=== PATIENT | female | born 1950 | race Caucasian/White ===

== ENCOUNTER 2017-03-13 17:54 | Emergency (ER) | payer MEDICARE ==
[2017-03-13] MEDS ORDERED: MORPHINE SULFATE 10 MG/ML INJ IV PRN (18:29)
--- NOTE | 2017-03-13 18:29 | ER Document Report ---
ED General - General Chief Complaint: Leg Pain Stated Complaint: RIGHT KNEE PAIN Time Seen by Provider: 03/13/17 18:16 Mode of Arrival: Ambulatory Information source: Patient Notes: This is a 66-year-old female with a history of hypercholesterolemia and hypertension that presents to the emergency room with progressively increased right lower extremity pain and swelling. Patient notes palpitations and shortness of breath today. Patient states she initially twisted her right knee 3 weeks ago in the garage, at that time she felt a pop in her right knee. She states that the pain got better of the next few days, but then notes progressive increased swelling since that time. TRAVEL OUTSIDE OF THE [place] IN LAST 30 DAYS: No - HPI Onset: Last week Onset/Duration: Gradual Quality of pain: Dull Severity: Moderate Pain Level: 2 Associated symptoms: Shortness of breath. denies: Chest pain Exacerbated by: Denies Relieved by: Denies Similar symptoms previously: No Recently seen / treated by doctor: No - Related Data Allergies/Adverse Reactions: No Known Allergies Allergy (Unverified 03/13/17 18:09) Home Medications: Current Home Medications Budesonide/Formoterol Fumarate [Symbicort Hfa 160-4.5 Mcg Inhaler 6 gm] 2 puff IH Q12 03/13/17 [History] Pravastatin Sodium [Pravachol] 40 mg PO QHS 03/13/17 [History] Valsartan/Hydrochlorothiazide [Valsartan-Hctz 160-12.5 mg Tab] 1 each PO DAILY 03/13/17 [History] Past Medical History - General Information source: Patient - Social History Smoking Status: Never Smoker Cigarette use (# per day): No Chew tobacco use (# tins/day): No Frequency of alcohol use: None Drug Abuse: None Lives with: Family Family History: Reviewed & Not Pertinent Patient has suicidal ideation: No Patient has homicidal ideation: No - Past Medical History Cardiac Medical History: Reports: Hx Hypercholesterolemia, Hx Hypertension Pulmonary Medical History: Reports: None EENT Medical History: Reports: None Neurological Medical History: Reports: None Renal/ Medical History: Denies: Hx Peritoneal Dialysis Malignancy Medical History: Reports: None GI Medical History: Reports: None Musculoskeltal Medical History: Reports None Skin Medical History: Reports None Psychiatric Medical History: Reports: None Traumatic Medical History: Reports: None Infectious Medical History: Reports: None Surgical Hx: Negative Review of Systems - Review of Systems Constitutional: denies: Chills, Fever EENT: No symptoms reported Cardiovascular: See HPI, Palpitations Respiratory: See HPI Gastrointestinal: No symptoms reported Genitourinary: No symptoms reported Female Genitourinary: No symptoms reported Musculoskeletal: No symptoms reported Skin: No symptoms reported Hematologic/Lymphatic: No symptoms reported Neurological/Psychological: No symptoms reported Physical Exam - Vital signs Vitals: Temp Pulse Resp BP Pulse Ox 98.4 F 109 H 20 153/83 H 94 03/13/17 18:07 03/13/17 18:07 03/13/17 18:07 03/13/17 18:07 03/13/17 18:07 Notes: Physical exam: GENERAL: XT 6-year-old female, alert and oriented 3, no acute distress, complaining of right lower extremity pain. HEAD: Atraumatic, normocephalic. EYES: Pupils equal round and reactive to light, extraocular movements intact, sclera anicteric, conjunctiva are normal. ENT: TMs normal, nares patent, oropharynx clear without exudates. Moist mucous membranes. NECK: Normal range of motion, supple without obvious mass or JVD. LUNGS: Breath sounds clear to auscultation bilaterally and equal. No wheezes rales or rhonchi. HEART: Regular rate and rhythm without murmurs, rubs or gallops. ABDOMEN: Soft, normoactive bowel sounds. No tenderness to palpation. No guarding, no rebound. No masses appreciated. EXTREMITIES: Patient does have swelling in the right lower extremity. She does have calf tenderness. She does have superficial venous disease of the right lower extremity. She has a good dorsal pedal pulse which is strong. Her cap refill is good. Her foot is normal in color and warmth. NEUROLOGICAL: Cranial nerves II through XII grossly intact. Normal speech, moving all extremities. PSYCH: Normal mood, normal affect. SKIN: Warm, Dry, normal turgor, no rashes or lesions noted. Course - Re-evaluation Re-evalutation: 03/13/17 23:13 Note: Mrs. Marie is a pleasant woman that is under a lot of stress lately. Her is terminally ill and she has a special needs 26-year-old son. She presented with palpitations and right lower extremity pain and swelling. The CTA of the chest showed no evidence of pulmonary emboli. Her cardiac enzymes were normal. Her EKG shows a left bundle branch block but there is no old EKG to compare. She has not had any chest pain. I did offer her admission because of the palpitations but she states that she has to be home to take care of her family. She is accompanied by her neighbor who lives across the street and is very supportive. The lower extremity ultrasound showed a complex right Rivera's cyst but they were not able to exclude a neoplastic component. I have discussed this with both of them. She will require an outpatient MRI. I again offered her admission for the palpitations and monitoring, and informed her that the MRI could be performed in the morning (MRI is not available at this time). She again reiterated that she has to go. I will give her a copy of today's lab tests and a referral to a primary care doctor. She understands that she needs the MRI. - Vital Signs Vital signs: Temp Pulse Resp BP Pulse Ox 98.5 F 87 20 143/61 H 93 03/13/17 23:54 03/13/17 23:54 03/13/17 18:07 03/13/17 23:54 03/13/17 23:54 - Laboratory Result Diagrams: 03/13/17 18:48 03/13/17 18:48 Laboratory results interpreted by me: 03/13/17 18:48 BUN 22 H - Diagnostic Test Radiology reviewed: Image reviewed, Reports reviewed - CTA of the chest shows no pulmonary emboli - EKG Interpretation by Me Rate: Normal Rhythm: NSR - EKG shows normal sinus rhythm with a left bundle branch block (no old EKG to compare). Discharge - Discharge Clinical Impression: Right leg swelling, Palpitations Condition: Stable Disposition: HOME, SELF-CARE Additional Instructions: As we discussed, the CT of the chest showed no evidence of blood clots. Your labs look very good. The ultrasound of the lower legs showed a complex cyst behind the knee. They are unable to exclude any neoplastic component. They recommended a contrast MRI of the right knee. I would like you to follow-up with your primary care doctor (either cony you or Dr. Florian) or Dr. Hightower (I will give you his number). Bring a copy of today's labs and ultrasound report with you when you see the doctor. In the meantime, take pain medicine as prescribed. See the instruction sheet below for narcotics. Return to the emergency room for worsening pain or swelling of the right lower leg. Return to the ER for any chest pain or shortness of breath. The pain medicine you're taking prescribed as a narcotic. There are several important things you should know about this medicine: 1. This medicine contains Tylenol: It is important that you do not take Tylenol (or acetaminophen) while on this medicine. Tylenol is metabolized by the liver and taking too much Tylenol (acetaminophen) can lay to liver damage and even liver failure. 2. Taking narcotics for too long can lead to physical and mental dependence. Take this medicine only if really needed and in the lowest quantity to achieve pain relief. 3. Do not drink alcohol while on this medicine. Alcohol interacts with narcotics and the combination can be dangerous. 4. Do not drive or operate machinery while on this medicine. 5. Narcotics do cause constipation, so drink plenty of fluids and daily stool softeners. Prescriptions: Oxycodone HCl/Acetaminophen [Percocet 5-325 mg Tablet] 1 - 2 tab PO ASDIR PRN # 25 tablet PRN Reason: Referrals: BARRETT SCHULTE FNP-C [Primary Care Provider] - Follow up as needed ADDI HIGHTOWER MD [ACTIVE STAFF] - Follow up as needed (This is the number of a primary care doctor)
[2017-03-13] MEDS ORDERED: ONDANSETRON HCL INJ/PF 4 MG/2 ML SDV IV ONE (18:30)
[2017-03-13 18:56] LABS: ABSOLUTE EOSINOPHILS # (AUTO) 0.1 10^3/uL (0.0-0.6); ABSOLUTE MONOCYTES (AUTO) 0.4 10^3/uL (0.1-1.4); ABSOLUTE NEUT (AUTO) 4.3 10^3/uL (1.7-8.2); BASOPHILS % (AUTO) 0.6 % (0-2); EOSINOPHILS % (AUTO) 1.4 % (0-6); HEMATOCRIT 40.9 % (36.0-47.0); HEMOGLOBIN 13.5 g/dL (12.0-15.5); LYMPHOCYTES % (AUTO) 17.5 % (13-45); MEAN CORPUSCULAR HEMOGLOBIN 31.4 pg (27.0-33.4); MEAN CORPUSCULAR HGB CONC 33.1 g/dL (32.0-36.0); MEAN CORPUSCULAR VOLUME 95 fl (80-97); MONOCYTES % (AUTO) 7.4 % (3-13); PLATELET COUNT 208 10^3/uL (150-450); RED CELL DISTRIBUTION WIDTH 12.3 % (11.5-14.0); SEGMENTED NEUTROPHILS % (AUTO) 73.1 % (42-78); TOTAL CELLS COUNTED % (AUTO) 100 %; WHITE BLOOD COUNT 5.9 10^3/uL (4.0-10.5)
[2017-03-13 19:10] LABS: ALANINE AMINOTRANSFERASE 20 U/L (9-52); ALBUMIN 3.9 g/dL (3.5-5.0); ALKALINE PHOSPHATASE 77 U/L (38-126); ANION GAP 9 (5-19); ASPARTATE AMINO TRANSFERASE 23 U/L (14-36); BILIRUBIN,DIRECT 0.3 mg/dL (0.0-0.4); BILIRUBIN,TOTAL 0.5 mg/dL (0.2-1.3); BLOOD UREA NITROGEN 22 mg/dL (7-20); CALCIUM 9.8 mg/dL (8.4-10.2); CARBON DIOXIDE 30 mmol/L (22-30); CHLORIDE 103 mmol/L (98-107); CREATINE KINASE 65 U/L (30-135); GLUCOSE 102 mg/dL (75-110); SODIUM 141.6 mmol/L (137-145); TOTAL PROTEIN 6.6 g/dL (6.3-8.2)
--- NOTE | 2017-03-13 19:13 | RADIOLOGY REPORT (SQ) ---
EXAM DESCRIPTION: KNEE RIGHT 3 VIEWS COMPLETED DATE/TIME: 03/13/2017 7:05 pm REASON FOR STUDY: right knee pain COMPARISON: None. NUMBER OF VIEWS: Three views. TECHNIQUE: AP, lateral, and sunrise patella radiographic images acquired of the right knee. LIMITATIONS: None. FINDINGS: MINERALIZATION: Normal. BONES: No acute fracture or dislocation. No worrisome bone lesions. No significant osteophytes. JOINT: No effusion. No chondrocalcinosis. OTHER: No other significant finding. IMPRESSION: NEGATIVE STUDY OF RIGHT KNEE. NO RADIOGRAPHIC EVIDENCE OF ACUTE INJURY. NO EXPLANATION F OR PAIN. TECHNICAL DOCUMENTATION: JOB ID: [id number] [employer]- All Rights Reserved
[2017-03-13 19:22] LABS: CREATINE KINASE MB 1.4 ng/mL (<4.55); TROPONIN I 0.019 ng/mL
--- NOTE | 2017-03-13 21:14 | RADIOLOGY REPORT (SQ) ---
EXAM DESCRIPTION: CTA CHEST COMPLETED DATE/TIME: 03/13/2017 9:00 pm REASON FOR STUDY: sob COMPARISON: None. TECHNIQUE: CT scan of the chest performed using helical scanning technique with dynamic intravenous contrast injection. Images reviewed with lung, soft tissue and bone windows. Reconstructed coronal and sagittal MPR images reviewed. Additional 3 dimensional post-processing performed to develop Maximal Intensity Projection images (PA P). All images stored on PACS. All CT scanners at this facility use dose modulation, iterative reconstruction, and/or weight based d osing when appropriate to reduce radiation dose to as low as reasonably achievable (ALARA). [facility]: Dose Right [facility]: CareDose [facility]: Dose Right [facility]: Teradose 4D [facility]: xiao qu wu you CONTRAST TYPE AND DOSE: contrast/concentration: Isovue 370.00 mg/ml; Total Contrast Delivered: 80.0 ml; Total Saline Delivered: 70.0 ml Contrast bolus adequate for pulmonary arteries and aorta. RENAL FUNCTION: BUN 22 creatinine 0.61. RADIATION DOSE: CT Rad equipment meets quality standard of care and radiation dose reduction techniq ues were employed. CTDIvol: 5.0 - 21.8 mGy. DLP: 855 mGy-cm. . LIMITATIONS: None. FINDINGS: LUNGS AND PLEURA: No masses, infiltrates, pneumothorax. Mild basilar scarring. No pleura l effusions, calcifications. AORTA AND GREAT VESSELS: No aneurysm. 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 HEART: No pericardial effusion. No significant coronary artery calcifications. PULMONARY ARTERIES: No emboli visualized in the main pulmonary arteries or the segmental branches. HILAR AND MEDIASTINAL STRUCTURES: No identified masses or abnormal nodes. HARDWARE: None in the chest. UPPER ABDOMEN: No significant findings. Limited exam. THYROID AND OTHER SOFT TISSUES: No masses. No adenopathy. BONES: No acute or significant finding. 3D MIPS: Confirm above findings. OTHER: No other significant finding. IMPRESSION: NORMAL CTA OF THE CHEST. NO PULMONARY EMBOLI. COMMENT: Quality ID # [id number]: Final reports with documentation of one or more dose reduction techniques (e.g., Automated exposure control, adjustment of the mA and/or kV according to patient size, use of iterative reconstruction technique) TECHNICAL DOCUMENTATION: JOB ID: [id number] [employer]- All Rights Reserved
--- NOTE | 2017-03-13 22:53 | RADIOLOGY REPORT (SQ) ---
EXAM DESCRIPTION: VENOUS UNILATERAL LOWER CLINICAL HISTORY: 66 years, Female, RLE pain and swelling COMPARISON: None. TECHNIQUE: Doppler venous sonogram. LIMITATIONS: None. FINDINGS: Deep venous system of the right lower extremity appears unremarkable based on color Doppler flow, compressibility, and augmentation maneuvers. Contralateral left common femoral vein is unremarkable. There is a 4.3 x 3.1 x 1.8 cm hypoechoic heterogeneous Rivera's cyst shaped no significant vascularity. IMPRESSION: 1. Possible 4.3 cm hemorrhagic/complex right Rivera's cyst; cannot exclude neoplastic component. Recommend contrast MRI of the right knee. 2.No DVT of the right lower extremity. 2011 [employer]- All Rights Reserved
[2017-03-13] MEDS ORDERED: OXYCODONE-ACETAMINOPHEN 5-325 MG TABLET PO ONE (23:19)
[2017-03-13 23:55] VITALS: BP 143/61
--- NOTE | 2017-03-14 09:19 | EKG REPORT ---
SEVERITY:- ABNORMAL ECG - SINUS RHYTHM LEFT BUNDLE BRANCH BLOCK : Confirmed by: Neeta Goel 14-Mar-2017 09:18:29
== END 2017-03-14 00:12 | disposition home or self-care (01) ==
LOC: ER 17:54
DX: M71.21 Synovial cyst of popliteal space [Baker], right knee (principal); I87.2 Venous insufficiency (chronic) (peripheral); M79.89 Other specified soft tissue disorders; M25.561 Pain in right knee; I10 Essential (primary) hypertension; R00.2 Palpitations; R06.02 Shortness of breath; I44.7 Left bundle-branch block, unspecified
CPT/HCPCS: 93005; 99285; 96374; 96375; 36415; 82553; 82550; 85025; 80053; 84484; 93971; 73562; 71275; 93010; J2270; A9270; J2405

== ENCOUNTER 2019-02-20 22:23 | Emergency (ER) | payer MEDICARE ==
[2019-02-20 23:07] LABS: ABSOLUTE EOSINOPHILS # (AUTO) 0.2 10^3/uL (0.0-0.6); ABSOLUTE LYMPHOCYTES (AUTO) 1.1 10^3/uL (0.5-4.7); ABSOLUTE MONOCYTES (AUTO) 0.5 10^3/uL (0.1-1.4); ABSOLUTE NEUT (AUTO) 4.5 10^3/uL (1.7-8.2); BASOPHILS % (AUTO) 0.5 % (0-2); EOSINOPHILS % (AUTO) 3.3 % (0-6); HEMATOCRIT 44.2 % (36.0-47.0); HEMOGLOBIN 14.8 g/dL (12.0-15.5); LYMPHOCYTES % (AUTO) 17.9 % (13-45); MEAN CORPUSCULAR HEMOGLOBIN 31.3 pg (27.0-33.4); MEAN CORPUSCULAR HGB CONC 33.5 g/dL (32.0-36.0); MEAN CORPUSCULAR VOLUME 93 fl (80-97); MONOCYTES % (AUTO) 8.3 % (3-13); PLATELET COUNT 200 10^3/uL (150-450); RED BLOOD COUNT 4.74 10^6/uL (3.72-5.28); RED CELL DISTRIBUTION WIDTH 12.5 % (11.5-14.0); TOTAL CELLS COUNTED % (AUTO) 100 %; WHITE BLOOD COUNT 6.4 10^3/uL (4.0-10.5)
[2019-02-20 23:08] LABS: INTERNATIONAL RATION (INR) 0.96; PROTHROMBIN TIME 12.8 SEC (11.4-15.4)
[2019-02-20 23:13] LABS: ALKALINE PHOSPHATASE 73 U/L (38-126); ANION GAP 12 (5-19); ASPARTATE AMINO TRANSFERASE 18 U/L (14-36); BILIRUBIN,DIRECT 0.1 mg/dL (0.0-0.4); BILIRUBIN,TOTAL 0.3 mg/dL (0.2-1.3); BLOOD UREA NITROGEN 22 mg/dL (7-20); CALCIUM 10.4 mg/dL (8.4-10.2); CARBON DIOXIDE 27 mmol/L (22-30); CHLORIDE 102 mmol/L (98-107); CREATINE KINASE 71 U/L (30-135); GLUCOSE 178 mg/dL (75-110); POTASSIUM 3.6 mmol/L (3.6-5.0); TOTAL PROTEIN 6.9 g/dL (6.3-8.2)
[2019-02-20 23:25] LABS: CREATINE KINASE MB 2.16 ng/mL (<4.55)
[2019-02-20 23:31] LABS: TROPONIN I < 0.012 ng/mL
--- NOTE | 2019-02-21 00:06 | EKG REPORT ---
SEVERITY:- ABNORMAL ECG - SINUS TACHYCARDIA LEFT BUNDLE BRANCH BLOCK : Confirmed by: Josiah Gibbs MD 21-Feb-2019 00:05:08
--- NOTE | 2019-02-21 00:08 | RADIOLOGY REPORT (SQ) ---
EXAM DESCRIPTION: XR CHEST 2 VIEWS COMPLETED DATE/TME: 02/20/2019 00:00 CLINICAL HISTORY: SOB COMPARISON: 03/13/2017 FINDINGS: Frontal and lateral views of the chest. Cardiomediastinal silhouette: Atherosclerotic calcification of thoracic aorta. Heart is upper limits of normal. Lungs: No consolidation, pneumothorax, pleural effusion. Leads overlie the chest. Bones: Degenerative change of the spine. Upper abdomen: No abnormality identified. IMPRESSION: 1. No acute pulmonary process identified.
--- NOTE | 2019-02-21 02:01 | ER Document Report ---
ED General - General Chief Complaint: Shortness Of Breath Stated Complaint: SHORTNESS OF BREATH Time Seen by Provider: 02/21/19 01:41 Primary Care Provider: MAYNOR MARCANO PA-C [Primary Care Provider] - Follow up in 1 week Notes: 68-year-old female with past medical history of hypertension and left bundle branch block presents with palpitations that started last night. Patient states these are intermittent and feel like her heart is racing. Patient denies any chest pain/tightness, shortness of breath, fever, coughing, nausea/vomiting, abdominal pain. Patient states she has been under a lot of stress lately. Patient states it has been more constant today but still intermittent. Patient states the highest her heart rate was 120. Patient denies any long distance travel, recent hospitalizations/surgeries, history of cancer, estrogen use, history of DVT or PE. TRAVEL OUTSIDE OF THE [place] IN LAST 30 DAYS: No - Related Data Allergies/Adverse Reactions: No Known Allergies Allergy (Unverified 03/13/17 18:09) Past Medical History - Social History Smoking Status: Never Smoker Family History: Reviewed & Not Pertinent Patient has suicidal ideation: No Patient has homicidal ideation: No - Past Medical History Cardiac Medical History: Reports: Hx Hypercholesterolemia, Hx Hypertension Renal/ Medical History: Denies: Hx Peritoneal Dialysis Past Surgical History: Reports: Hx Section Review of Systems - Review of Systems Notes: Constitutional: Negative for fever. HENT: Negative for sore throat. Eyes: Negative for visual changes. Cardiovascular: Positive for palpitations. Negative for chest pain. Respiratory: Negative for shortness of breath. Gastrointestinal: Negative for abdominal pain, vomiting or diarrhea. Genitourinary: Negative for dysuria. Musculoskeletal: Negative for back pain. Skin: Negative for rash. Neurological: Negative for headaches, weakness or numbness. 10 point ROS negative except as marked above and in HPI. Physical Exam - Vital signs Vitals: Resp Pulse Ox 19 97 02/20/19 22:36 02/20/19 22:36 - Notes Notes: GENERAL: Well-appearing, well-nourished and in no acute distress. HEAD: Atraumatic, normocephalic. EYES: Extraocular movements intact, sclera anicteric, conjunctiva are normal. NECK: Normal range of motion, supple without lymphadenopathy or JVD. LUNGS: Breath sounds clear to auscultation bilaterally and equal. No wheezes rales or rhonchi. HEART: Regular rate and rhythm without murmurs, rubs or gallops. ABDOMEN: Soft, nontender. No guarding, no rebound. No masses appreciated. EXTREMITIES: Normal range of motion, no pitting or edema. No clubbing or cya nosis. NEUROLOGICAL: Cranial nerves II through XII grossly intact. Normal speech, normal gait. PSYCH: Normal mood, normal affect. SKIN: Warm, Dry, normal turgor, no rashes or lesions noted. Course - Re-evaluation Re-evalutation: 02/21/19 68-year-old female with history of hypertension and left bundle branch block presents for palpitations. Patient is nontoxic, well-appearing. Patient is non-tachycardic upon exam. Lungs are clear bilaterally. Abdomen soft nontender. PE is otherwise on remarkable. Cardiac work-up was initiated upon arrival. Lab work so far is reassuring. Troponin is negative. D-dimer, repeat troponin, and TSH were added on. 02/21/19 02:00 EKG shows sinus tachy at 109 with LBBB. 02/21/19 05:55 patient's d-dimer was elevated. Repeat Trope was negative. TSH was within normal limits. CT angio chest was ordered which showed no PE. Report was printed out and given to patient. Discussed all results including CTA chest with patient. Strict return precautions given. Patient is no longer tachycardic. Patient encouraged to keep appointment with PCP next week for further evaluation. All questions/concerns addressed prior to discharge. - Vital Signs Vital signs: Temp Pulse Resp BP Pulse Ox 98.2 F 112 H 16 173/98 H 100 02/20/19 22:50 02/20/19 22:50 02/21/19 05:00 02/20/19 22:50 02/21/19 05:00 - Laboratory Result Diagrams: 02/20/19 22:45 02/20/19 22:45 Laboratory results interpreted by me: 02/20/19 02/20/19 22:45 22:45 D-Dimer 0.65 H BUN 22 H Glucose 178 H Calcium 10.4 H Discharge - Discharge Clinical Impression: Palpitation Condition: Stable Disposition: HOME, SELF-CARE Instructions: Palpitations (Irregular or Rapid Heartrate) ([facility]) Additional Instructions: Your work-up today was reassuring. Please follow-up with your primary care doctor as scheduled next week. Return to ER for any worsening symptoms, including worsening palpitations, chest pain, shortness of breath, fever, cough, abdominal pain, nausea/vomiting, or any other symptoms that are concerning to you. Referrals: MAYNOR MARCANO PA-C [Primary Care Provider] - Follow up in 1 week
--- NOTE | 2019-02-21 05:28 | RADIOLOGY REPORT (SQ) ---
EXAM DESCRIPTION: CT CHEST ANGIOGRAPHY WITHOUT THEN WITH IV CONTRAST COMPLETED DATE/TME: 02/21/2019 02:32 EXAM DESCRIPTION: CLINICAL HISTORY: elevated d dimer, tachycardia, dyspnea COMPARISON: None Available. TECHNIQUE: CTA of the chest obtained following the uncomplicated intravenous administration of 77 mL Omnipaque 350. 3-D/MIP reformatted images of the chest available for evaluation. FINDINGS: Chest: Pulmonary arteries: Contrast bolus is adequate.No filling defects identified in the pulmonary arteries to suggest pulmonary embolus. Thyroid:No abnormalities of the visualized thyroid. Great Vessels: Aberrant right subclavian artery which is a normal variant. Thoracic Aorta:No abnormalities of the thoracic aorta identified. Heart: Cardiomegaly. Coronary artery atherosclerosis. No significant pericardial effusion. Lymph Nodes:No enlarged mediastinal lymph nodes identified. Esophagus: Small hiatal hernia. Other:No additional findings. Lungs:No airspace opacities identified. Pleura:No pleural effusion or pneumothorax. Trachea/Airways:No abnormalities of the visualized trachea or airways. Bones:No destructive osseous lesions. Upper Abdomen: Degenerative change of the spine. IMPRESSION: 1. No pulmonary embolus identified. 2. Cardiomegaly. Coronary artery atherosclerosis. This exam was performed according to our departmental dose-optimization program, which includes automated exposure control, adjustment of the mA and/or kV according to patient size and/or use of iterative reconstruction technique.
[2019-02-21 06:02] VITALS: BP 165/76
== END 2019-02-21 06:02 | disposition home or self-care (01) ==
LOC: ER 22:23
DX: R00.2 Palpitations (principal); I44.7 Left bundle-branch block, unspecified; I10 Essential (primary) hypertension; R79.89 Other specified abnormal findings of blood chemistry
CPT/HCPCS: 36415; 71046; 71275; 80053; 82550; 82553; 84443; 84484; 85025; 85379; 85610; 93005; 93010; 99285

== ENCOUNTER → 2019-07-26 | Outpatient (CLI) | payer MEDICARE ==
[2019-07-26 17:04] LABS: ALBUMIN 3.4 g/dL (3.5-5.0); ALKALINE PHOSPHATASE 574 U/L (38-126); ANION GAP 14 (5-19); ASPARTATE AMINO TRANSFERASE 83 U/L (14-36); BLOOD UREA NITROGEN 50 mg/dL (7-20); CARBON DIOXIDE 19 mmol/L (22-30); CHLORIDE 98 mmol/L (98-107); GLUCOSE 140 mg/dL (75-110); TOTAL PROTEIN 7.2 g/dL (6.3-8.2)
[2019-07-26 17:33] LABS: BILIRUBIN,TOTAL 36.3 mg/dL (0.2-1.3)
[2019-07-26 17:57] LABS: POTASSIUM 2.8 mmol/L (3.6-5.0)
--- NOTE | 2019-07-26 18:58 | RADIOLOGY REPORT (SQ) ---
EXAM DESCRIPTION: CT ABD/PELVIS WITH IV ORAL IMAGES COMPLETED DATE/TIME: 07/26/2019 6:27 pm REASON FOR STUDY: R16.0 HEPATOMEGALY, NOT ELSEWHERE CLASSIFIED R16.0 HEPATOMEGALY, NOT ELSEWHERE CL ASSIFIED COMPARISON: 03/07/2010 TECHNIQUE: CT scan of the abdomen and pelvis performed using helical scanning technique with dynamic intravenous contrast injection. No oral contrast. Images reviewed with lung, soft tissue, and bone windows. Reconstructed coronal and sagittal MPR images reviewed. Delayed images for evaluation of the urinary system also acquired. All images stored on PACS. All CT scanners at this facility use dose modulation, iterative reconstruction, and/or weight based d osing when appropriate to reduce radiation dose to as low as reasonably achievable (ALARA). [facility]: Dose Right [facility]: CareDose [facility]: Dose Right [facility]: Teradose 4D [facility]: Mabaya CONTRAST TYPE AND DOSE: 60 mL Omnipaque 300(the contrast was hand injected) RENAL FUNCTION: Creatinine - 1.53 BUN =50 RADIATION DOSE: CT Rad equipment meets quality standard of care and radiation dose reduction techniq ues were employed. CTDIvol: 16.2 - 19.0 mGy. DLP: 1780 mGy-cm.. LIMITATIONS: None. FINDINGS: LOWER CHEST: Very small subcentimeter left perifissural nodule, axial image 1, series 4. Prior granulomatous disease. LIVER: Marked intrahepatic biliary ductal dilatation and extrahepatic dilatation. The common bile d uct is dilated and measures approximately 18-19.0 mm in AP diameter. It is dilated throughout its co urse and appears to change caliber at about the level of the pancreatic head. Marked dilatation of t he pancreatic duct which measures approximately 2.1 cm in AP diameter. In the region of the head of the pancreas -neck of the pancreas, heterogenous appearing mass is suggested. Considerations for thi s finding includes pancreatic neoplasm. Moderate volume abdomen and pelvic ascites. Small calcified hepatic granuloma. Pelvic SPLEEN: Normal size. No focal lesions. PANCREAS: Please see above discussion. GALLBLADDER: Marked dilatation of the the gallbladder. No identified stones by CT criteria. No infl ammatory changes to suggest cholecystitis. ADRENAL GLANDS: No significant masses or asymmetry. RIGHT KIDNEY AND URETER: No solid masses. No significant calcifications. No hydronephrosis or hyd roureter. LEFT KIDNEY AND URETER: No solid masses. No significant calcifications. No hydronephrosis or hydr oureter. AORTA AND VESSELS: No aneurysm. No dissection. Renal arteries, SMA, celiac without stenosis. RETROPERITONEUM: No retroperitoneal adenopathy, hemorrhage or masses. BOWEL AND PERITONEAL CAVITY: Colonic diverticulosis. As can best be determined, no evidence of dive rticulitis. APPENDIX: Normal. PELVIS: The urinary bladder is incompletely distended. ABDOMINAL WALL: Bilateral fat containing inguinal hernias. BONES: Levoconvex scoliosis and degenerative lumbar spondylosis, facet arthrosis and disc disease. OTHER: Small to mild hiatal hernia. Partial fatty atrophy left gluteus yung muscle. IMPRESSION: 1. The constellation of findings as described above including marked intrahepatic and e xtrahepatic biliary ductal dilatation likely related to a pancreatic mass in the region of the head-n jon of the pancreas. Marked ductal dilatation of the pancreatic duct distal to the mass. Correlatio n with MRI Abdomen/MRCP. 2. Moderate abdominal and pelvic ascites. 3. Marked dilatation of the gallbladder. 4. Colonic diverticulosis. As can best be determined no evidence diverticulitis. Evaluation of the colon is somewhat limited. 5. Additional findings as above. TECHNICAL DOCUMENTATION: JOB ID: [id number] Quality ID # [id number]: Final reports with documentation of one or more dose reduction techniques (e.g., Au tomated exposure control, adjustment of the mA and/or kV according to patient size, use of iterative reconstruction technique) 2010 [employer]- All Rights Reserved Reading location - IP/workstation name: [email or web address]
== END ==
LOC: RAD 16:09
PROVIDERS: ATTEND Internal Medicine Geriatric Medicine
DX: R16.0 Hepatomegaly, not elsewhere classified (principal); R17 Unspecified jaundice; K44.9 Diaphragmatic hernia without obstruction or gangrene; K40.20 Bilateral inguinal hernia, without obstruction or gangrene, not specified as recurrent; R18.8 Other ascites; K82.8 Other specified diseases of gallbladder; K57.30 Diverticulosis of large intestine without perforation or abscess without bleeding; K86.89 Other specified diseases of pancreas
CPT/HCPCS: 36415; 74177; 80053

== ENCOUNTER 2019-07-27 15:04 | Inpatient (IN) | payer MEDICARE ==
--- NOTE | 2019-07-27 15:34 | ER Document Report ---
HPI - HPI Time Seen by Provider: 07/27/19 15:20 Pain Level: Denies Notes: 69-year-old female patient presents the emergency department as a direct admit from Dr. Avalos. She has admitting orders for severe jaundice with.'s, pancreatic mass, ascites and history of hypertension, COPD and hyperlipidemia. Patient reports over the last 2 weeks she is slowly been getting jaundiced. She reports she is normally healthy, exercises and follows a healthy diet. She has no acute complaints today that have not been met by Dr. Orellana orders. - REPRODUCTIVE Reproductive: DENIES: : Past Medical History - General Information source: Patient - Social History Smoking Status: Unknown if Ever Smoked Frequency of alcohol use: None Drug Abuse: None Family History: Reviewed & Not Pertinent Patient has homicidal ideation: No - Past Medical History Cardiac Medical History: Reports: Hx Hypercholesterolemia, Hx Hypertension Renal/ Medical History: Denies: Hx Peritoneal Dialysis Past Surgical History: Reports: Hx Section Vertical Provider Document - CONSTITUTIONAL Notes: PHYSICAL EXAMINATION: GENERAL: Appears to be stated age, well-nourished and in no acute distress. HEAD: Atraumatic, normocephalic. EYES: Pupils equal round extraocular movements intact, conjunctiva are yellow. ENT: Nares patent NECK: Normal range of motion LUNGS: No respiratory distress Musculoskeletal: Abdomen distended. NEUROLOGICAL: Normal speech, normal gait. PSYCH: Normal mood, normal affect. SKIN: Jaundiced. - INFECTION CONTROL TRAVEL OUTSIDE OF THE [place] IN LAST 30 DAYS: No Course - Re-evaluation Re-evalutation: 07/27/19 15:36 Patient presents as a direct admission, orders to be placed by medical secretary receptionist. Patient will be admitted to the [facility]. - Vital Signs Vital signs: Temp Pulse Resp BP Pulse Ox 97.4 F 81 18 121/52 L 96 07/27/19 15:21 07/27/19 15:07 07/27/19 15:07 07/27/19 15:07 07/27/19 15:07 Discharge - Discharge Clinical Impression: severe jaundice with puritis, Pancreatic mass, History of hypertension, COPD e xacerbation Ascites Qualifiers: Ascites type: other type Qualified Code(s): R18.8 - Other ascites HLD (hyperlipidemia) Qualifiers: Hyperlipidemia type: unspecified Qualified Code(s): E78.5 - Hyperlipidemia, unspecified Condition: Stable Disposition: ADMITTED INPATIENT Admitting Provider: [facility] Unit Admitted: IMCU Referrals: MAYNOR MARCANO PA-C [Primary Care Provider] - Follow up as needed
--- NOTE | 2019-07-27 16:53 | RADIOLOGY REPORT (SQ) ---
EXAM DESCRIPTION: CHEST 2 VIEWS IMAGES COMPLETED DATE/TIME: 07/27/2019 4:36 pm REASON FOR STUDY: copd, htn,ascitis COMPARISON: 02/20/2019 EXAM PARAMETERS: NUMBER OF VIEWS: two views TECHNIQUE: Digital Frontal and Lateral radiographic views of the chest acquired. RADIATION DOSE: NA LIMITATIONS: none FINDINGS: LUNGS AND PLEURA: Chronic interstitial changes without focal consolidation, pleural effusi on or pneumothorax. MEDIASTINUM AND HILAR STRUCTURES: No masses or contour abnormalities. HEART AND VASCULAR STRUCTURES: Heart normal size. No evidence for failure. BONES: No acute findings. Serpiginous thoracolumbar curvature. HARDWARE: None in the chest. OTHER: No other significant finding. IMPRESSION: No evidence of acute cardiopulmonary process. TECHNICAL DOCUMENTATION: JOB ID: [id number] 2010 [employer] All Rights Reserved Reading location - IP/workstation name: [email or web address]
[2019-07-27 18:49] LABS: HEMATOCRIT 37.2 % (36.0-47.0); HEMOGLOBIN 13.4 g/dL (12.0-15.5); MEAN CORPUSCULAR HEMOGLOBIN 31.6 pg (27.0-33.4); MEAN CORPUSCULAR HGB CONC 35.9 g/dL (32.0-36.0); MEAN CORPUSCULAR VOLUME 88 fl (80-97); RED BLOOD COUNT 4.23 10^6/uL (3.72-5.28); RED CELL DISTRIBUTION WIDTH 18.6 % (11.5-14.0); WHITE BLOOD COUNT 5.9 10^3/uL (4.0-10.5)
[2019-07-27 19:10] LABS: PLATELET COUNT 260 10^3/uL (150-450)
[2019-07-27 19:22] LABS: ALBUMIN 3.8 g/dL (3.5-5.0); ALKALINE PHOSPHATASE 668 U/L (38-126); ANION GAP 15 (5-19); ASPARTATE AMINO TRANSFERASE 101 U/L (14-36); BLOOD UREA NITROGEN 45 mg/dL (7-20); CALCIUM 10.4 mg/dL (8.4-10.2); CARBON DIOXIDE 20 mmol/L (22-30); CHLORIDE 97 mmol/L (98-107); GLUCOSE 103 mg/dL (75-110); PHOSPHORUS 3.6 mg/dL (2.5-4.5); POTASSIUM 3.9 mmol/L (3.6-5.0); TOTAL PROTEIN 8.2 g/dL (6.3-8.2)
[2019-07-27 20:20] LABS: BILIRUBIN,TOTAL 39.5 mg/dL (0.2-1.3)
[2019-07-27] MEDS ORDERED: HYDROXYZINE HCL 10 MG TABLET PO SCH (21:00)
[2019-07-27] MEDS ORDERED: POTASSIUM CHLORIDE 20 MEQ/50 ML RTU IV ONE (22:00)
[2019-07-27] MEDS ORDERED: POTASSIUM CHLORIDE 20 MEQ/50 ML RTU IV SCH (22:00)
--- NOTE | 2019-07-27 22:48 | PDOC H&P ---
History of Present Illness Admission Date/PCP: 07/27/19 16:27 LUCINDA LUCIA MD Patient complains of: Jaundice History of Present Illness: DEBBIE RYAN is a 69 year old female patient that newly established with my practice on 07/26/2019 due to about three weeks of her skin turning yellow. Patient reported that she use an organic colon cleanser and subsequently noticed that her skin started turning yellow. She denied any significant abdominal pain, nausea, vomiting or any prior history of liver of gallbladder disease process. She denied alcohol abuse or ingestion of any other OTC prior to onset of her symptoms. She has history of hyperlipidemia and currently on Pravastatin therapy. She denied excessive use of Tylenol. Her initial radiological evaluati on with CT scan abdomen and Pelvis revealed intra and extra hepatic ductal dilatation, pancreatic mass lesion in the pancreatic head/neck region with post lesion pancreatic ductal dilatation. There was associated moderate abdominal and pelvic fluid collection. She was advised hospitalization for expeditious evaluation with concern for possible pancreatic and hepatobiliary cancer process. Her laboratory findings include significant hypokalemia and elevated liver enzymes.Her morbidities are as stated below. Past Medical History Cardiac Medical History: Reports: Hyperlipidema, Hypertension Past Surgical History Past Surgical History: Reports: Section Social History Smoking Status: Never Smoker Electronic Cigarette use?: No Frequency of Alcohol Use: None Hx Recreational Drug Use: No Hx Prescription Drug Abuse: No - Advance Directive Resuscitation Status: Full Code Family History Family History: Reviewed & Not Pertinent Parental Family History Reviewed: Yes Children Family History Reviewed: Yes Sibling(s) Family History Reviewed.: Yes Medication/Allergy Home Medications: Budesonide/Formoterol Fumarate [Symbicort Hfa 160-4.5 Mcg Inhaler 6 gm] 2 puff IH Q12 03/13/17 Pravastatin Sodium [Pravachol] 40 mg PO QHS 03/13/17 Telmisartan/Hydrochlorothiazid [Telmisartan-Hctz 80-12.5 mg Tb] 1 each PO DAILY 07/27/19 Allergies/Adverse Reactions: No Known Allergies Allergy (Verified 07/27/19 15:24) Review of Systems Constitutional: ABSENT: chills, fever(s), headache(s), weight gain, weight loss Eyes: ABSENT: visual disturbances Ears: ABSENT: hearing changes Cardiovascular: ABSENT: chest pain, dyspnea on exertion, edema, orthropnea, palpitations Respiratory: ABSENT: cough, hemoptysis Gastrointestinal: ABSENT: abdominal pain, constipation, diarrhea, hematemesis, hematochezia, nausea, vomiting Genitourinary: ABSENT: dysuria, hematuria Musculoskeletal: ABSENT: joint swelling Integumentary: PRESENT: pruritus, other - jaundice. ABSENT: rash, wounds Neurological: ABSENT: abnormal gait, abnormal speech, confusion, dizziness, focal weakness, syncope Psychiatric: ABSENT: anxiety, depression, homidical ideation, suicidal ideation Endocrine: ABSENT: cold intolerance, heat intolerance, polydipsia, polyuria Hematologic/Lymphatic: ABSENT: easy bleeding, easy bruising, lymphadenopathy Physical Exam Vital Signs: Temp Pulse Resp BP Pulse Ox 97.5 F 84 22 H 124/63 100 07/27/19 19:16 07/27/19 19:16 07/27/19 19:16 07/27/19 19:16 07/27/19 19:16 Intake & Output 07/26/19 07/27/19 07/28/19 06:59 06:59 06:59 Weight 87.8 kg General appearance: PRESENT: obese Head exam: PRESENT: atraumatic, normocephalic Eye exam: PRESENT: EOMI, PERRLA, scleral icterus - severe. ABSENT: nystagmus, periorbital swelling Ear exam: PRESENT: normal external ear exam Mouth exam: PRESENT: moist, tongue midline Neck exam: PRESENT: full ROM. ABSENT: carotid bruit, JVD, lymphadenopathy, thyromegaly Respiratory exam: PRESENT: clear to auscultation darshan Cardiovascular exam: PRESENT: RRR, +S1, +S2. ABSENT: diastolic murmur, rubs, systolic murmur Vascular exam: PRESENT: normal capillary refill. ABSENT: pallor GI/Abdominal exam: PRESENT: normal bowel sounds, soft. ABSENT: distended, guarding, mass, organolmegaly, rebound, tenderness Rectal exam: PRESENT: deferred Extremities exam: ABSENT: pedal edema Musculoskeletal exam: PRESENT: ambulatory, normal inspection Neurological exam: PRESENT: alert, awake, oriented to person, oriented to place, oriented to time, oriented to situation, CN II-XII grossly intact. ABSENT: motor sensory deficit Psychiatric exam: PRESENT: anxious, appropriate affect, normal mood. ABSENT: homicidal ideation, suicidal ideation Skin exam: PRESENT: dry, jaundice - severe, warm. ABSENT: rash Results Laboratory Results: 07/27/19 18:30 07/27/19 18:30 07/27/19 07/27/19 18:30 18:30 WBC 5.9 RBC 4.23 Hgb 13.4 Hct 37.2 MCV 88 MCH 31.6 MCHC 35.9 RDW 18.6 H Plt Count 260 Sodium 132.4 L Potassium 3.9 Chloride 97 L Carbon Dioxide 20 L Anion Gap 15 BUN 45 H Creatinine 1.38 H Est GFR ( Amer) 46 L Glucose 103 Calcium 10.4 H Phosphorus 3.6 Magnesium 2.4 H Total Bilirubin 39.5 H AST 101 H Alkaline Phosphatase 668 H Total Protein 8.2 Albumin 3.8 Impressions: Chest X-Ray 07/27/19 00:00 IMPRESSION: No evidence of acute cardiopulmonary process. Assessment & Plan - Diagnosis (1) Painless jaundice Is this a current diagnosis for this admission?: Yes Plan: See admitting attending physician orders for details about care plan. (2) Pancreatic mass Is this a current diagnosis for this admission?: Yes Plan: See admitting attending physician orders for details about care plan. (3) Ascites Qualifiers: Ascites type: other type Qualified Code(s): R18.8 - Other ascites Is this a current diagnosis for this admission?: Yes Plan: See admitting attending physician orders for details about care plan. (4) HTN (hypertension) Qualifiers: Hypertension type: essential hypertension Qualified Code(s): I10 - Essential (primary) hypertension Is this a current diagnosis for this admission?: Yes Plan: See admitting attending physician orders for details about care plan. (5) COPD exacerbation Is this a current diagnosis for this admission?: Yes Plan: See admitting attending physician orders for details about care plan. (6) HLD (hyperlipidemia) Qualifiers: Hyperlipidemia type: unspecified Qualified Code(s): E78.5 - Hyperlipidemia, unspecified Is this a current diagnosis for this admission?: Yes Plan: See admitting attending physician orders for details about care plan. - Time Time Spent: 50 to 70 Minutes Medications reviewed and adjusted accordingly: Yes Anticipated discharge: Home with Homehealth Within: Other - Inpatient Certification Based on my medical assessment, after consideration of the patient's comorbidities, presenting symptoms, or acuity I expect that the services needed warrant INPATIENT care.: Yes I certify that my determination is in accordance with my understanding of Medicare's requirements for reasonable and necessary INPATIENT services [42 CFR 412.3e].: Yes Medical Necessity: Significant Comorbidiites Make Outpatient Treatment Too Risky, Need Close Monitoring Due to Risk of Patient Decompensation, Need For IV Fluids, Need For Continuous Telemetry Monitoring, Need for Surgery, Risk of Complication if Not Cared For in Hospital, Risk of Diagnosis Which Will Require Inpatient Eval/Care/Monitoring Post Hospital Care: D/C [place] Documentation - Plan Summary Plan Summary: See admitting attending physician orders for details about care plan.
[2019-07-28] MEDS ORDERED: HYDROXYZINE HCL 10 MG TABLET PO PRN (01:00)
[2019-07-28] MEDS: PANTOPRAZOLE SODIUM 40 MG TABLET.DR PO SCH (05:36)
[2019-07-28 07:11] LABS: PROTHROMBIN TIME 19.2 SEC (11.4-15.4)
[2019-07-28 07:12] LABS: PARTIAL THROMBOPLASTIN TIME 31.9 SEC (23.5-35.8)
[2019-07-28 07:21] LABS: ABSOLUTE EOSINOPHILS # (AUTO) 0.1 10^3/uL (0.0-0.6); ABSOLUTE LYMPHOCYTES (AUTO) 1.1 10^3/uL (0.5-4.7); ABSOLUTE MONOCYTES (AUTO) 0.6 10^3/uL (0.1-1.4); ABSOLUTE NEUT (AUTO) 3.7 10^3/uL (1.7-8.2); BASOPHILS % (AUTO) 0.4 % (0-2); HEMATOCRIT 30.9 % (36.0-47.0); LYMPHOCYTES % (AUTO) 19.8 % (13-45); MEAN CORPUSCULAR HEMOGLOBIN 31.6 pg (27.0-33.4); MEAN CORPUSCULAR HGB CONC 36.6 g/dL (32.0-36.0); MEAN CORPUSCULAR VOLUME 86 fl (80-97); MONOCYTES % (AUTO) 11.1 % (3-13); PLATELET COUNT 211 10^3/uL (150-450); RED BLOOD COUNT 3.58 10^6/uL (3.72-5.28); RED CELL DISTRIBUTION WIDTH 18.7 % (11.5-14.0); SEGMENTED NEUTROPHILS % (AUTO) 66.7 % (42-78); TOTAL CELLS COUNTED % (AUTO) 100 %; WHITE BLOOD COUNT 5.6 10^3/uL (4.0-10.5)
[2019-07-28 07:27] LABS: ALBUMIN 2.8 g/dL (3.5-5.0); ALKALINE PHOSPHATASE 498 U/L (38-126); ANION GAP 11 (5-19); ASPARTATE AMINO TRANSFERASE 71 U/L (14-36); BLOOD UREA NITROGEN 46 mg/dL (7-20); CARBON DIOXIDE 20 mmol/L (22-30); CHLORIDE 103 mmol/L (98-107); GLUCOSE 111 mg/dL (75-110); TOTAL PROTEIN 6.3 g/dL (6.3-8.2)
--- NOTE | 2019-07-28 07:44 | EKG REPORT ---
SEVERITY:- ABNORMAL ECG - SINUS RHYTHM IVCD, CONSIDER ATYPICAL LBBB : Confirmed by: Elda Cruz MD 28-Jul-2019 07:43:24
[2019-07-28 07:50] LABS: HEMOGLOBIN 11.3 g/dL (12.0-15.5)
[2019-07-28 07:52] LABS: ANISOCYTOSIS 1+; POIKILOCYTOSIS SLIGHT; SCHISTOCYTES SLIGHT
[2019-07-28 07:53] LABS: PLATELET COMMENT ADEQUATE; PLATELET LARGE PRESENT; TARGET CELLS 3+
[2019-07-28 07:54] LABS: TOXIC GRANULATION SLIGHT
[2019-07-28 07:57] LABS: BILIRUBIN,DIRECT 32.1 mg/dL (0.0-0.4)
[2019-07-28 07:58] LABS: BILIRUBIN,TOTAL 34.4 mg/dL (0.2-1.3)
[2019-07-28] MEDS ORDERED: NALOXONE HCL INJ/PF 0.4 MG/1 ML SDV IV ONE (08:45)
[2019-07-28] MEDS: POTASSIUM CHLORIDE 20 MEQ/50 ML RTU IV SCH ×3 (09:38→21:22)
[2019-07-28] MEDS: NORMAL SALINE 1000 ML 1,000 ML IV PRN ×2 (09:38→20:48)
[2019-07-28] MEDS: FLUTICASONE/VILANTEROL 200-25 MCG/DOSE IH SCH (09:39)
[2019-07-28 11:25] LABS: PATH REVIEW PATHOLOGIST REVIEWED
[2019-07-28] MEDS ORDERED: PHENYLEPHRINE HCL INJ/PF 10 MG/1 ML SDV ONE (11:32)
[2019-07-28] MEDS ORDERED: PHYTONADIONE INJ 10 MG/1 ML AMPULE SUBCUT ONE (11:44)
[2019-07-28] MEDS ORDERED: HYDROXYZINE HCL 10 MG TABLET PO SCH (12:00)
[2019-07-28] MEDS: CEFAZOLIN 1 GM/D5W RTU 1 GM/50 ML RTUPB IV SCH ×2 (12:46→20:25)
[2019-07-28] MEDS: HYDROXYZINE PAMOATE 25 MG CAPSULE PO SCH ×2 (12:47→20:49)
--- NOTE | 2019-07-28 15:11 | RADIOLOGY REPORT (SQ) ---
EXAM DESCRIPTION: U/S ABDOMEN LIMITED W/O DOP IMAGES COMPLETED DATE/TIME: 07/28/2019 2:39 pm REASON FOR STUDY: EVAL FOR ASCITES COMPARISON: None. TECHNIQUE: Limited Static and real time pike scale imaging performed of the 4 abdominal quadrants an d the midline. LIMITATIONS: None. FINDINGS: ASCITES: Trace amount of fluid in the right upper quadrant. Trace amount of fluid in the right lower quadrant. No significant fluid for drainage. OTHER: No other significant finding. IMPRESSION: No significant ascites. No intervention was performed. TECHNICAL DOCUMENTATION: JOB ID: [id number] 2010 [employer]- All Rights Reserved Reading location - IP/workstation name: [email or web address]
[2019-07-28] MEDS ORDERED: PROPOFOL INJ 200 MG/20 ML VIAL IV ONE (16:46)
[2019-07-28] MEDS ORDERED: LIDOCAINE 2% INJ-PF (20 MG/ML) 10 ML AMPUL ONE (16:46)
[2019-07-28] MEDS ORDERED: ONDANSETRON HCL INJ/PF 4 MG/2 ML SDV ONE (16:46)
[2019-07-28] MEDS ORDERED: DEXAMETHASONE SOD PHOSPHATE INJ 4 MG/1 ML VIAL ONE (16:46)
--- NOTE | 2019-07-28 17:36 | PDOC CONSULTATION ---
Consultation Consult Date: 07/27/19 Provider Consulted: MARIE HOLMAN History of Present Illness Admission Date/PCP: 07/27/19 16:27 MAYNOR MARCANO PA-C History of Present Illness: DEBBIE RYAN is a 69 year old femalePatient was admitted yesterday with jaundice. She has been having symptoms for the last 3 to 4 weeks with generalized itching, feeling unwell and jaundice. Bilirubin was 36 on admission. She denies abdominal pain but just feels uncomfortable all over. She has lost about 80 pounds over the last 1 year though she changed her diet a lot and has been exercising every day. CAT scan of abdomen performed on 07/26/2019 showed marked intra-and extrahepatic duct dilatation and pancreatic duct dilation. The CBD was up to 19 mm. She has a heterogeneous mass in the region of the head and neck of the pancreas. There was moderate ascites reported though none was seen today during an attempted paracentesis. Gallbladder is also markedly dilated. LFTs were normal in January 2019 Past Medical History Cardiac Medical History: Reports: Hyperlipidema, Hypertension Psychiatric Medical History: Denies: Depression Past Surgical History Past Surgical History: Reports: Section Social History Smoking Status: Never Smoker Electronic Cigarette use?: No Frequency of Alcohol Use: None Hx Recreational Drug Use: No Hx Prescription Drug Abuse: No - Advance Directive Resuscitation Status: Full Code Family History Family History: Reviewed & Not Pertinent Parental Family History Reviewed: No Children Family History Reviewed: NA Sibling(s) Family History Reviewed.: NA Medication/Allergy Home Medications: Budesonide/Formoterol Fumarate [Symbicort Hfa 160-4.5 Mcg Inhaler 6 gm] 2 puff IH Q12 03/13/17 Pravastatin Sodium [Pravachol] 40 mg PO QHS 03/13/17 Telmisartan/Hydrochlorothiazid [Telmisartan-Hctz 80-12.5 mg Tb] 1 each PO DAILY 07/27/19 Allergies/Adverse Reactions: No Known Allergies Allergy (Verified 07/27/19 15:24) Physical Exam Vital Signs: Temp Pulse Resp BP Pulse Ox 97.5 F 71 18 105/38 L 99 07/28/19 15:04 07/28/19 15:04 07/28/19 15:04 07/28/19 15:04 07/28/19 15:04 Intake & Output 07/27/19 07/28/19 07/29/19 06:59 06:59 06:59 Intake Total 310 958 Output Total 300 Balance 10 958 Weight 87.8 kg Exam: General: Patient is alert and very jaundiced HEENT: T PERRLA. Oropharynx normal Respiratory: No chest deformity. No respiratory distress. Chest wall palpitatio n was unremarkable. Breath sounds were normal Cardiovascular: Heart sounds 1 and 2 normal with no murmurs. Abdominal: Slightly distended but not tender. Liver and spleen not palpable. No ascites demonstrated. Bowel sounds active. Rectal examination was deferred. Extremities: No edema Neurological: Alert and oriented x4. Grossly nonfocal. Normal speech Skin: No significant rash Psychological: Normal affect Results Laboratory Results: 07/28/19 06:32 07/28/19 06:32 07/27/19 07/27/19 07/28/19 18:30 18:30 06:32 WBC 5.9 5.6 RBC 4.23 3.58 L Hgb 13.4 11.3 L D Hct 37.2 30.9 L MCV 88 86 MCH 31.6 31.6 MCHC 35.9 36.6 H RDW 18.6 H 18.7 H Plt Count 260 211 Seg Neutrophils % 66.7 Sodium 132.4 L Potassium 3.9 Chloride 97 L Carbon Dioxide 20 L Anion Gap 15 BUN 45 H Creatinine 1.38 H Est GFR ( Amer) 46 L Glucose 103 Calcium 10.4 H Phosphorus 3.6 Magnesium 2.4 H Total Bilirubin 39.5 H AST 101 H Alkaline Phosphatase 668 H Total Protein 8.2 Albumin 3.8 07/28/19 06:32 WBC RBC Hgb Hct MCV MCH MCHC RDW Plt Count Seg Neutrophils % Sodium 134.3 L Potassium 3.0 L* Chloride 103 Carbon Dioxide 20 L Anion Gap 11 BUN 46 H Creatinine 1.45 H Est GFR ( Amer) 43 L Glucose 111 H Calcium 10.0 Phosphorus Magnesium Total Bilirubin 34.4 H D AST 71 H Alkaline Phosphatase 498 H Total Protein 6.3 Albumin 2.8 L Impressions: Chest X-Ray 07/27/19 00:00 IMPRESSION: No evidence of acute cardiopulmonary process. Abdomen Ultrasound 07/28/19 08:00 IMPRESSION: No significant ascites. No intervention was performed. Assessment & Plan - Diagnosis (1) Abnormal LFTs Is this a current diagnosis for this admission?: Yes Plan: Biliary obstruction is most likely from the pancreatic lesion. She needs a drainage procedure in addition to further work-up which may include pancreatic EUS with biopsy. CA-19-9 and AFP were requested. She will undergo an ERCP with stent placement. (2) Painless jaundice Is this a current diagnosis for this admission?: Yes (3) Pancreatic mass Is this a current diagnosis for this admission?: Yes
--- NOTE | 2019-07-28 18:48 | Operative Report ---
Operative Report DATE OF SURGERY: 07/28/19 Operative Report: Pre-op diagnosis: Jaundice and dilated pancreatic and biliary ducts Post-op diagnosis: 1. Pancreatic ducts dilation and stricture 2. Common bile duct not cannulated Surgery: ERCP Medications: As per anesthesia Tissue removed: None Procedure: After informed consent obtained from patient, patient was placed under general anesthesia. The ERCP endoscope was then inserted into the esophagus blindly and advanced into the stomach. The duodenum was entered and the ampulla was identified. Using the triple-lumen sphincterotomy catheter attempt was made to cannulate the common bile duct. The pancreatic duct was initially cannulated and this showed dilation in the head up to the mid duct. No contrast flowed into the distal part of the pancreas. Multiple attempts at cannulating the common bile duct were unsuccessful. No bile was seen. Patient tolerated procedure well. Findings Common bile duct: Not cannulated Pancreatic duct: Mid duct stricture. Plan: Will suggest percutaneous transhepatic cholangiogram with biliary drain placement. Patient can also be transferred to a tertiary center for repeat ERCP, PTC and further management of her pancreatic lesion. OPERATION: .
[2019-07-28] MEDS ORDERED: POTASSIUM CHLORIDE 20 MEQ/50 ML RTU IV ONE (20:30)
--- NOTE | 2019-07-28 22:47 | PDOC PROGRESS REPORT ---
Subjective Progress Note for:: 07/28/19 Subjective:: Itching remain major complain by the patient today. Her ERCP did not result in the common bile duct cannulation. Her cannulated proximal pancreatic duct suggested stricture and inline with pancreatic lesion. She denied nausea, vomiting, or abdominal pain. No chest pain or difficulty with breathing. No fever or chills. Her abdominal US revealed minimal ascites to warrant paracentesis. Reason For Visit: SEVERE JAUNDICE W/PANCREATITIS,PANCREATIC MASS Physical Exam Vital Signs: Temp Pulse Resp BP Pulse Ox 97.6 F 124 H 16 115/59 L 90 L 07/28/19 19:44 07/28/19 19:44 07/28/19 19:44 07/28/19 19:44 07/28/19 19:44 Intake & Output 07/27/19 07/28/19 07/29/19 06:59 06:59 06:59 Intake Total 310 1840 Output Total 300 0 Balance 10 1840 Weight 87.8 kg General appearance: PRESENT: no acute distress Head exam: PRESENT: atraumatic, normocephalic Eye exam: PRESENT: scleral icterus Mouth exam: PRESENT: moist Respiratory exam: PRESENT: clear to auscultation darshan Cardiovascular exam: PRESENT: RRR, +S1, +S2. ABSENT: diastolic murmur, rubs, systolic murmur GI/Abdominal exam: PRESENT: normal bowel sounds, soft. ABSENT: distended, guarding, mass, organolmegaly, rebound, tenderness Extremities exam: ABSENT: pedal edema Neurological exam: PRESENT: alert, awake, oriented to person, oriented to place, oriented to time, oriented to situation, CN II-XII grossly intact. ABSENT: motor sensory deficit Psychiatric exam: PRESENT: appropriate affect, normal mood. ABSENT: homicidal ideation, suicidal ideation Skin exam: PRESENT: dry, jaundice, warm Results Laboratory Results: 07/28/19 06:32 07/28/19 06:32 07/28/19 07/28/19 06:32 06:32 WBC 5.6 RBC 3.58 L Hgb 11.3 L D Hct 30.9 L MCV 86 MCH 31.6 MCHC 36.6 H RDW 18.7 H Plt Count 211 Seg Neutrophils % 66.7 Sodium 134.3 L Potassium 3.0 L* Chloride 103 Carbon Dioxide 20 L Anion Gap 11 BUN 46 H Creatinine 1.45 H Est GFR ( Amer) 43 L Glucose 111 H Calcium 10.0 Total Bilirubin 34.4 H D AST 71 H Alkaline Phosphatase 498 H Total Protein 6.3 Albumin 2.8 L Impressions: Chest X-Ray 07/27/19 00:00 IMPRESSION: No evidence of acute cardiopulmonary process. Abdomen Ultrasound 07/28/19 08:00 IMPRESSION: No significant ascites. No intervention was performed. Assessment & Plan - Diagnosis (1) Painless jaundice Is this a current diagnosis for this admission?: Yes (2) Pancreatic mass Is this a current diagnosis for this admission?: Yes (3) Ascites Qualifiers: Ascites type: other type Qualified Code(s): R18.8 - Other ascites Is this a current diagnosis for this admission?: Yes (4) HTN (hypertension) Qualifiers: Hypertension type: essential hypertension Qualified Code(s): I10 - E ssential (primary) hypertension Is this a current diagnosis for this admission?: Yes (5) COPD exacerbation Is this a current diagnosis for this admission?: Yes (6) HLD (hyperlipidemia) Qualifiers: Hyperlipidemia type: unspecified Qualified Code(s): E78.5 - Hyperlipidemia, unspecified Is this a current diagnosis for this admission?: Yes (7) Hypokalemia due to inadequate potassium intake Is this a current diagnosis for this admission?: Yes Plan: She will receive potassium replacement with post infusion CMP in AM. - Time Time Spent with patient: 25-34 minutes Level of Care: IMCU Medications reviewed and adjusted accordingly: Yes Anticipated discharge: Home Within: Other - Inpatient Certification Based on my medical assessment, after consideration of the patient's comorbidities, presenting symptoms, or acuity I expect that the services needed warrant INPATIENT care.: Yes I certify that my determination is in accordance with my understanding of Medicare's requirements for reasonable and necessary INPATIENT services [42 CFR 412.3e].: Yes Medical Necessity: Significant Comorbidiites Make Outpatient Treatment Too Risky, Need Close Monitoring Due to Risk of Patient Decompensation, Need For IV Fluids, Need For Continuous Telemetry Monitoring, Need for Surgery, Risk of Complication if Not Cared For in Hospital, Risk of Diagnosis Which Will Require Inpatient Eval/Care/Monitoring Post Hospital Care: D/C Gluing Machine Feeder Documentation, D/C or Transfer Summary - Plan Summary Plan Summary: Continue current medication management. I discussed her ERCP procedure and findings with Dr. Solis. Follow up with interventional radiologist for consideration of percutaneous transhepatic cholangiogram with biliary drain placement in AM. If this cannot be accomplished at this hospital we will look into transfer to tertiary center. She overall prognosis remain guarded.
[2019-07-29] MEDS: CEFAZOLIN 1 GM/D5W RTU 1 GM/50 ML RTUPB IV SCH ×5 (01:00→23:12)
[2019-07-29] MEDS: HYDROXYZINE PAMOATE 25 MG CAPSULE PO SCH ×5 (01:44→23:12)
[2019-07-29] MEDS: PANTOPRAZOLE SODIUM 40 MG TABLET.DR PO SCH (05:28)
[2019-07-29 05:46] LABS: HEMATOCRIT 33.6 % (36.0-47.0); MEAN CORPUSCULAR HEMOGLOBIN 31.2 pg (27.0-33.4); MEAN CORPUSCULAR HGB CONC 35.7 g/dL (32.0-36.0); MEAN CORPUSCULAR VOLUME 88 fl (80-97); RED BLOOD COUNT 3.84 10^6/uL (3.72-5.28); RED CELL DISTRIBUTION WIDTH 19.5 % (11.5-14.0); WHITE BLOOD COUNT 5.4 10^3/uL (4.0-10.5)
[2019-07-29 06:01] LABS: ALBUMIN 2.8 g/dL (3.5-5.0); ALKALINE PHOSPHATASE 515 U/L (38-126); ANION GAP 11 (5-19); ASPARTATE AMINO TRANSFERASE 73 U/L (14-36); BLOOD UREA NITROGEN 39 mg/dL (7-20); CARBON DIOXIDE 20 mmol/L (22-30); CHLORIDE 105 mmol/L (98-107); GLUCOSE 162 mg/dL (75-110); POTASSIUM 3.5 mmol/L (3.6-5.0); TOTAL PROTEIN 6.4 g/dL (6.3-8.2)
[2019-07-29 06:28] LABS: ABSOLUTE LYMPHOCYTES# (MANUAL) 0.4 10^3/uL (0.5-4.7); ABSOLUTE MONOCYTES # (MANUAL) 0.5 10^3/uL (0.1-1.4); BASOPHILS % (MANUAL) 0 % (0-2); EOSINOPHILS % (MANUAL) 0 % (0-6); LYMPHOCYTES % (MANUAL) 8 % (13-45); MONOCYTES % (MANUAL) 10 % (3-13); SEGMENTED NEUTROPHILS % (MAN) 82 % (42-78); TOTAL CELLS COUNTED 100
[2019-07-29 06:29] LABS: ANISOCYTOSIS 2+; PLATELET COMMENT ADEQUATE
[2019-07-29 06:32] LABS: PLATELET COUNT 208 10^3/uL (150-450)
[2019-07-29 06:34] LABS: TARGET CELLS 3+
[2019-07-29 06:36] LABS: TOXIC GRANULATION SLIGHT
[2019-07-29 06:47] LABS: BILIRUBIN,DIRECT 32.5 mg/dL (0.0-0.4); BILIRUBIN,TOTAL 34.5 mg/dL (0.2-1.3)
--- NOTE | 2019-07-29 08:08 | RADIOLOGY REPORT (SQ) ---
EXAM DESCRIPTION: ENDO CATH/BILIARY DUCT; NO CHG FLUORO IMAGES COMPLETED DATE/TIME: 07/28/2019 7:00 pm REASON FOR STUDY: ERCP COMPARISON: None. FLUOROSCOPY TIME: 6.1 minutes. 2 images saved to PACS. TECHNIQUE: Intra-operative images acquired during surgical procedure to evaluate progress. NUMBER OF IMAGES: 2 images. LIMITATIONS: None. FINDINGS: Images of the abdomen acquired during ERCP. IMPRESSION: IMAGE(S) OBTAINED DURING PROCEDURE. COMMENT: Quality ID [id number]: Final reports for procedures using fluoroscopy that document radiation exp osure indices, or exposure time and number of fluorographic images (if radiation exposure indices are not available) Please consult full operative report of the attending physician for description of the procedure. TECHNICAL DOCUMENTATION: JOB ID: [id number] 2010 [employer]- All Rights Reserved Reading location - IP/workstation name: [email or web address]
--- NOTE | 2019-07-29 08:09 | RADIOLOGY REPORT (SQ) ---
EXAM DESCRIPTION: ENDO CATH/BILIARY DUCT; NO CHG FLUORO IMAGES COMPLETED DATE/TIME: 07/28/2019 7:00 pm REASON FOR STUDY: ERCP COMPARISON: None. FLUOROSCOPY TIME: 6.1 minutes. 2 images saved to PACS. TECHNIQUE: Intra-operative images acquired during surgical procedure to evaluate progress. NUMBER OF IMAGES: 2 images. LIMITATIONS: None. FINDINGS: Images of the abdomen acquired during ERCP. IMPRESSION: IMAGE(S) OBTAINED DURING PROCEDURE. COMMENT: Quality ID [id number]: Final reports for procedures using fluoroscopy that document radiation exp osure indices, or exposure time and number of fluorographic images (if radiation exposure indices are not available) Please consult full operative report of the attending physician for description of the procedure. TECHNICAL DOCUMENTATION: JOB ID: [id number] 2010 [employer]- All Rights Reserved Reading location - IP/workstation name: [email or web address]
[2019-07-29] MEDS: FLUTICASONE/VILANTEROL 200-25 MCG/DOSE IH SCH (09:28)
[2019-07-29] MEDS: NORMAL SALINE 1000 ML 1,000 ML IV PRN ×2 (09:34→21:38)
--- NOTE | 2019-07-29 09:44 | PDOC PROGRESS REPORT ---
Subjective Progress Note for:: 07/29/19 Subjective:: Less itching this morning. No nausea or vomiting No abdominal pain. No chest pain or difficulty with breathing. No fever or chills. I discussed case with interventional radiologist team with hope that patient will be on schedule for PTC with biliary drainage system tomorrow. Reason For Visit: SEVERE JAUNDICE W/PANCREATITIS,PANCREATIC MASS Physical Exam Vital Signs: Temp Pulse Resp BP Pulse Ox 97.7 F 69 16 114/42 L 95 07/29/19 04:44 07/29/19 07:00 07/29/19 04:44 07/29/19 04:44 07/29/19 04:44 Intake & Output 07/28/19 07/29/19 07/30/19 06:59 06:59 06:59 Intake Total 310 2990 Output Total 300 350 Balance 10 2640 Weight 87.8 kg 86.4 kg Physical Exam: General appearance: PRESENT: no acute distress Head exam: PRESENT: atraumatic, normocephalic Eye exam: PRESENT: scleral icterus Mouth exam: PRESENT: moist Respiratory exam: PRESENT: clear to auscultation darshan Cardiovascular exam: PRESENT: RRR, +S1, +S2. ABSENT: diastolic murmur, rubs, systolic murmur GI/Abdominal exam: PRESENT: normal bowel sounds, soft. ABSENT: distended, guarding, mass, organomegaly, rebound, tenderness Extremities exam: ABSENT: pedal edema Neurological exam: PRESENT: alert, awake, oriented to person, oriented to place, oriented to time, oriented to situation, CN II-XII grossly intact. ABSENT: motor sensory deficit Psychiatric exam: PRESENT: appropriate affect, normal mood. ABSENT: homicidal ideation, suicidal ideation Skin exam: PRESENT: dry, jaundice, warm Results Laboratory Results: 07/29/19 04:41 07/29/19 04:41 07/29/19 07/29/19 04:41 04:41 WBC 5.4 RBC 3.84 Hgb 12.0 Hct 33.6 L MCV 88 MCH 31.2 MCHC 35.7 RDW 19.5 H Plt Count 208 Seg Neutrophils % Not Reportable Sodium 136.0 L Potassium 3.5 L Chloride 105 Carbon Dioxide 20 L Anion Gap 11 BUN 39 H Creatinine 1.26 H Est GFR ( Amer) 51 L Glucose 162 H Calcium 10.0 Total Bilirubin 34.5 H AST 73 H Alkaline Phosphatase 515 H Total Protein 6.4 Albumin 2.8 L Impressions: Chest X-Ray 07/27/19 00:00 IMPRESSION: No evidence of acute cardiopulmonary process. Catheter Placement 07/28/19 00:00 IMPRESSION: IMAGE(S) OBTAINED DURING PROCEDURE. Fluoroscopy 07/28/19 00:00 IMPRESSION: IMAGE(S) OBTAINED DURING PROCEDURE. Abdomen Ultrasound 07/28/19 08:00 IMPRESSION: No significant ascites. No intervention was performed. Assessment & Plan - Diagnosis (1) Painless jaundice Is this a current diagnosis for this admission?: Yes (2) Pancreatic mass Is this a current diagnosis for this admission?: Yes (3) Ascites Qualifiers: Ascites type: other type Qualified Code(s): R18.8 - Other ascites Is this a current diagnosis for this admission?: Yes (4) HTN (hypertension) Qualifiers: Hypertension type: essential hypertension Qualified Code(s): I10 - Essential (primary) hypertension Is this a current diagnosis for this admission?: Yes (5) COPD exacerbation Is this a current diagnosis for this admission?: Yes (6) HLD (hyperlipidemia) Qualifiers: Hyperlipidemia type: unspecified Qualified Code(s): E78.5 - Hyperlipidemia, unspecified Is this a current diagnosis for this admission?: Yes (7) Hypokalemia due to inadequate potassium intake Is this a current diagnosis for this admission?: Yes - Time Time Spent with patient: 25-34 minutes Level of Care: IMCU Medications reviewed and adjusted accordingly: Yes Anticipated discharge: Home Within: Other - Inpatient Certification Based on my medical assessment, after consideration of the patient's comorbidities, presenting symptoms, or acuity I expect that the services needed warrant INPATIENT care.: Yes I certify that my determination is in accordance with my understanding of Medicare's requirements for reasonable and necessary INPATIENT services [42 CFR 412.3e].: Yes Medical Necessity: Significant Comorbidiites Make Outpatient Treatment Too Risky, Need Close Monitoring Due to Risk of Patient Decompensation, Need For IV Fluids, Need For Continuous Telemetry Monitoring, Need for IV Antibiotics, Risk of Complication if Not Cared For in Hospital, Risk of Diagnosis Which Will Require Inpatient Eval/Care/Monitoring Post Hospital Care: D/C Website Designer Documentation - Plan Summary Plan Summary: Patient will continue on all current medication management. She will resume oral feeding and made NPO after midnight. I discussed case with Dr. Solis and ALIRIO Tang (interventional radiology team assistant in lieu of Dr. Calderon) regarding PTC procedure if the laborer carpentry dock is made available due to the ricardo virus buckley demic. Dr. Brito will cover my service until 08/04/2019.
[2019-07-30] MEDS: HYDROXYZINE PAMOATE 25 MG CAPSULE PO SCH (05:27)
[2019-07-30] MEDS: PANTOPRAZOLE SODIUM 40 MG TABLET.DR PO SCH (05:27)
[2019-07-30] MEDS: CEFAZOLIN 1 GM/D5W RTU 1 GM/50 ML RTUPB IV SCH (05:27)
[2019-07-30 08:07] VITALS: BP 118/47
[2019-07-30] MEDS: FLUTICASONE/VILANTEROL 200-25 MCG/DOSE IH SCH (09:43)
[2019-07-30] MEDS: NORMAL SALINE 1000 ML 1,000 ML IV PRN (09:45)
--- NOTE | 2019-07-30 10:00 | PDOC TRANSFER SUMMARY ---
General Admission Date/PCP: 07/27/19 16:27 MAYNOR MARCANO PA-C Transfer Date: 07/30/19 Accepting Facility: [facility] Resuscitation Status: Full Code - Transfer Diagnosis (1) Obstructive jaundice Is this a current diagnosis for this admission?: Yes (2) Pancreatic mass Is this a current diagnosis for this admission?: Yes - Transfer Medications Home Medications: Budesonide/Formoterol Fumarate [Symbicort Hfa 160-4.5 Mcg Inhaler 6 gm] 2 puff IH Q12 03/13/17 Pravastatin Sodium [Pravachol] 40 mg PO QHS 03/13/17 Telmisartan/Hydrochlorothiazid [Telmisartan-Hctz 80-12.5 mg Tb] 1 each PO DAILY 07/27/19 Transfer Medications: Current Medications Fluticasone/Vilanterol (Breo 200-25 Mcg Ellipta 14 Dose/Dpi) 1 inh IH DAILY SARAH Stop: 08/27/19 09:59 Last Admin: 07/30/19 09:43 Dose: 1 puff Documented by: Hydroxyzine Pamoate (Vistaril 25 Mg Capsule) 25 mg PO Q6 SARAH Stop: 08/27/19 11:59 Last Admin: 07/30/19 05:27 Dose: 25 mg Documented by: Sodium Chloride (Nacl 0.9% 1000 Ml Iv Soln) 1,000 mls @ 100 mls/hr IV CONTINUOUS PRN PRN Reason: THIS MED IS NOT "PRN" Stop: 08/26/19 21:02 Last Admin: 07/30/19 09:45 Dose: 100 mls/hr Documented by: Cefazolin Sodium/Dextrose (Ancef Rtu 1 Gm/D5w 50 Ml Premix Bag) 1 gm in 50 mls @ 100 mls/hr IV Q6 SARAH Stop: 08/04/19 11:59 Last Infusion: 07/30/19 07:00 Dose: Infused Documented by: Pantoprazole Sodium (Protonix [address] Tablet) 40 mg PO Q6AM SARAH Stop: 08/27/19 05:59 Last Admin: 07/30/19 05:27 Dose: 40 mg Documented by: - Allergies Allergies/Adverse Reactions: No Known Allergies Allergy (Verified 07/27/19 15:24) Hospital Course Hospital Course: Patient was admitted on July 27, 2023 evaluation of obstructive jaundice, CAT scan of the abdomen demonstrated a mass in the the head of the pancreas. She un derwent ERCP on 07/28/2019, unfortunately the common bile duct could not be cannulated, the pancreatic duct showed mild stricture, a percutaneous transhepatic cholangiogram with biliary drain placement was recommended pending other diagnostic evaluation for the mass. This procedure could not be performed at this time in this hospital patient is being transferred to [facility] for the procedure thank you Physical Exam Vital Signs: Temp Pulse Resp BP Pulse Ox 97.6 F 64 16 118/47 L 94 07/30/19 07:58 07/30/19 07:58 07/30/19 07:58 07/30/19 07:58 07/30/19 07:58 Intake & Output 07/29/19 07/30/19 07/31/19 06:59 06:59 06:59 Intake Total 2990 2019 1050 Output Total 350 Balance 2640 2020 1050 Weight 86.4 kg 90.4 kg General appearance: PRESENT: no acute distress Eye exam: PRESENT: PERRLA, scleral icterus Respiratory exam: PRESENT: clear to auscultation darshan Cardiovascular exam: PRESENT: +S1, +S2 Results Laboratory Results: 07/29/19 04:41 07/29/19 04:41 Impressions: Chest X-Ray 07/27/19 00:00 IMPRESSION: No evidence of acute cardiopulmonary process. Catheter Placement 07/28/19 00:00 IMPRESSION: IMAGE(S) OBTAINED DURING PROCEDURE. Fluoroscopy 07/28/19 00:00 IMPRESSION: IMAGE(S) OBTAINED DURING PROCEDURE. Abdomen Ultrasound 07/28/19 08:00 IMPRESSION: No significant ascites. No intervention was performed.
== END 2019-07-30 11:15 | disposition short-term general hospital (02) | DRG 445 ==
LOC: ER 15:04 → EH 16:27 → 3S 19:13
PROVIDERS: ADMIT Internal Medicine Geriatric Medicine; ATTEND Internal Medicine Geriatric Medicine
PROC: BF181ZZ Fluoroscopy of Pancreatic Ducts using Low Osmolar Contrast (ICD-10-PCS; 2019-07-28)
PROC: 0FJD8ZZ Inspection of Pancreatic Duct, Via Natural or Artificial Opening Endoscopic (ICD-10-PCS; principal; 2019-07-28 17:00)
DX: K83.1 Obstruction of bile duct (principal); R18.8 Other ascites; K86.9 Disease of pancreas, unspecified; E78.5 Hyperlipidemia, unspecified; I10 Essential (primary) hypertension; Z79.899 Other long term (current) drug therapy; E87.6 Hypokalemia
CPT/HCPCS: 36415; 43264; 71046; 732; 74177; 74328; 76705; 80053; 82105; 83735; 84100; 85025; 85027; 85610; 85730; 86301; 93005; 93010; 99140; 99285; J0690; J1100; J2310; J2370; J2405; J2704; J3430; J3480; J3490; J7030; Q9967